=== PATIENT | male | born 1955 | race Caucasian/White ===

== ENCOUNTER 2021-10-27 06:55 | Day surgery (SDC) | payer MEDICARE, OTHER ==
[~2021-10-27] VITALS: Ht 205.7 cm; Wt 109.1 kg
[~2021-10-27 06:55] MED LIST: ASPIRIN325 MG PO; ATENOLOL25 MG PO; CALTRATE 600 +1 EAC1 PO; CELLCEPT500 MG PO; FLOMAX0.4 MG PO; FOSAMAX70 MG PO; HYDROXYZINE HCL50 MG PO; IMURAN50 MG PO; MAGNESIUM400 M1 PO; MULTIVITAMINS1 EAC7 PO; PROGRAF1 MG PO; ROPINIROLE HC0.25 MG PO; TEMAZEPAM30 MG PO
--- NOTE | 2021-10-27 09:11 | NUR ---
10/27/21 0911 Cielo Desai 0953-PATIENT ARRIVED TO PACU ON 10L MASK ORAL AIRWAY IN PLACE. NONAROUSABLE. LAYING LEFT LATERAL ABDOMEN SOFT. PASSING GAS. IVF INFUSING.
--- NOTE | 2021-10-27 09:50 | OR ---
[facility] [address] [place], [place] [address] Signed DATE OF OPERATION: 10/27/2021 SURGEON: Alie Paula MD PREOPERATIVE DIAGNOSES: 1. Internal hemorrhoids. 2. Diverticulosis. 3. Personal history of colonic polyps. 4. Maternal aunt with colon cancer in her 60s. POSTOPERATIVE DIAGNOSES: 1. 4 mm polyp at 18 cm/rectum. 2. Moderate sigmoid diverticulosis. 3. Minimal to moderate internal hemorrhoids. PROCEDURE: Colonoscopy with hot biopsy. ESTIMATED BLOOD LOSS: None. INDICATIONS: Ronnie is a 66-year-old gentleman, who returns for a followup colonoscopy. He ended up with hepatitis C as well as his drinking. He had to have a liver transplant back in 2010 at our [facility]. He continues to do well. Dr. Larson did his colonoscopy in 2004 and apparently he had polyps. He had upper and lower endoscopy again with Dr. Larson in 2008. No polyps at that time, but he had internal hemorrhoids and diverticulosis. He was said to have esophageal varices at that time. He had banding of the esophageal varices with Dr. Larson in 2009. His followup colonoscopy in 2010 revealed tiny 2 mm polyp in the rectum and again internal hemorrhoids and diverticulosis. He had banding of the varices at that time prior to his liver transplant. I helped him with a colonoscopy in 2015. He had a tubular adenoma and a tubulovillous adenomatous polyp removed. He also had internal hemorrhoids and diverticulosis. He has been in atrial fibrillation since that time as well. He requires monitored anesthesia care given his past medical history. We had also felt a left prostate nodule and he follows along with his urologist, Dr. Meyers. We know his maternal aunt was diagnosed with colon cancer in her 60s. Currently, he has no lower GI complaints. In the office, I had given him a pamphlet on colonoscopy. He recalls the nature of the test. There is risk including, but not limited to gas bloating, crampy abdominal pain, bleeding, perforation requiring surgery, and missed diagnosis. We also Electronically Signed By: ALIE PAULA MD 10/27/21 0950 PATIENT NAME: RONNIE VICKERS OPERATIVE REPORT DATE OF : 53 REPORT #: [id number] PHYSICIAN: ALIE PAULA MD PCP: NAOMI NICK MD REPORT IS CONFIDENTIAL AND NOT TO BE RELEASED WITHOUT AUTHORIZATION [facility] [address] [place], [place] [address] Signed reviewed the need for monitored anesthesia care. He had expressed understanding and wished to proceed. PROCEDURE NOTE: Ronnie was taken into our endoscopy suite and placed in the left lateral decubitus position. He was given monitored anesthesia care with propofol per our nurse him manager. A digital rectal exam was performed and again he has a fairly significant prostate that is indurated left little more than the right. Really not much in the way of any external hemorrhoids. He had good sphincter tone. The adult colonoscope had been introduced and advanced around into the cecum under direct visualization of the camera without difficulty. He needed extra propofol in that regard. His prep was quite excellent. We could easily see the appendiceal orifice and the ileocecal valve. The scope was then slowly withdrawn. He does have diverticula in the sigmoid colon. They are moderate in size, minimal to moderate in number, and scattered about. We could see just a tiny polyp at the top of his rectum, easily removed with a hot biopsy forceps. Upon retroflexion of the scope, he does have moderate internal hemorrhoid columns. After this, the gas was suctioned out and colonoscope removed. Ronnie tolerated the procedure quite well. RECOMMENDATIONS: I will see Ronnie back in my office in 7 to 14 days to review his results. I suspect he will stay on the five year plan. Alie Paula MD ALB/MODL /[id number] cc: MD Naomi Don MD Copies: ALIE PAULA MD Electronically Signed By: ALIE PAULA MD 10/27/21 0950 PATIENT NAME: RONNIE VICKERS OPERATIVE REPORT DATE OF : 53 REPORT #: [id number] PHYSICIAN: ALIE PAULA MD PCP: NAOMI NICK MD REPORT IS CONFIDENTIAL AND NOT TO BE RELEASED WITHOUT AUTHORIZATION [facility] [address] [place] [address] Signed NAOMI NICK MD ~ Electronically Signed By: ALIE PAULA MD 10/27/21 0950 PATIENT NAME: RONNIE VICKERS OPERATIVE REPORT DATE OF : 53 REPORT #: [id number] PHYSICIAN: ALIE PAULA MD PCP: NAOMI NICK MD REPORT IS CONFIDENTIAL AND NOT TO BE RELEASED WITHOUT AUTHORIZATION
--- NOTE | 2021-10-28 16:24 | PATH ---
[facility] [address] [place], [place] [address] Signed SPECIMEN(S): A RECTAL POLYP AT 18 CM SPECIMEN SOURCE: A. RECTAL POLYP AT 18 CM CLINICAL HISTORY: Personal history of colon polyps, family history of colon cancer, internal hemorrhoids, diverticulosis. FINAL PATHOLOGIC DIAGNOSIS: Rectum, polyp at 18 cm, polypectomy: - Hyperplastic polyp. - Negative for dysplasia or malignancy. NAL:cml:C2NR MICROSCOPIC EXAMINATION: Histologic sections of all submitted blocks are examined by light microscopy. These findings, together with the gross examination, support the pathologic diagnosis. GROSS DESCRIPTION: The specimen, labeled "FU," and designated on the requisition "rectal polyp at 18 cm," is received in formalin and consists of one hui soft tissue fragment that measures 0.3 cm in greatest dimension. The specimen is entirely submitted in cassette (A1). AT (under the direct supervision of a pathologist) The Gross Description was prepared using a voice recognition system. The report was reviewed for accuracy; however, sound-alike word errors, addition and/or deletions may occur. If there is any question about this report, please contact Client Services. PERFORMING LABORATORY: The technical component was performed by [facility], [address] [place] [id number] (CLIA# [id number]). [facility], [address] [address] (CLIA# [id number]). Diagnostician: Nessa Chakraborty MD Pathologist Electronically Signed 10/28/2021 PATIENT NAME: ADRIAN VICKERS PATHOLOGY DATE OF : 53 REPORT #: [id number] PHYSICIAN: [facility] PCP: NAOMI NICK MD REPORT IS CONFIDENTIAL AND NOT TO BE RELEASED WITHOUT AUTHORIZATION [address] [place] [address] Signed Copies: ~ PATIENT NAME: ADRIAN VICKERS PATHOLOGY DATE OF : 53 REPORT #: [id number] PHYSICIAN: [facility] PCP: NAOMI NICK MD REPORT IS CONFIDENTIAL AND NOT TO BE RELEASED WITHOUT AUTHORIZATION
== END 2021-10-27 09:50 | disposition home or self-care (01) ==
LOC: DS 06:55 → OPS 06:55 → DS 08:15 → OPS 08:15
PROVIDERS: ATTEND Colon & Rectal Surgery
PROC: 0DBP8ZZ Excision of Rectum, Via Natural or Artificial Opening Endoscopic (ICD-10-PCS; principal; 2021-10-27 08:15)
DX: K62.1 Rectal polyp (principal); K64.8 Other hemorrhoids; K57.30 Diverticulosis of large intestine without perforation or abscess without bleeding; N40.0 Benign prostatic hyperplasia without lower urinary tract symptoms; I48.20 Chronic atrial fibrillation, unspecified; I10 Essential (primary) hypertension; M81.0 Age-related osteoporosis without current pathological fracture; G25.81 Restless legs syndrome; Z86.010 Personal history of colon polyps; Z80.0 Family history of malignant neoplasm of digestive organs; Z94.4 Liver transplant status; Z79.82 Long term (current) use of aspirin
CPT/HCPCS: J2704

== ENCOUNTER 2023-01-09 17:56 | Emergency (ER) | payer MEDICARE, OTHER ==
[~2023-01-09] VITALS: Ht 205.7 cm; Wt 106.6 kg
[2023-01-09] MEDS ORDERED: ATORVASTATIN CA10 MG PO (22:11)
[2023-01-10 01:00] VITALS: BP 115/63
== END 2023-01-10 01:27 | disposition home or self-care (01) ==
LOC: ED 17:56
DX: T83.091A Other mechanical complication of indwelling urethral catheter, initial encounter (principal); Y73.3 Surgical instruments, materials and gastroenterology and urology devices (including sutures) associated with adverse incidents; Y83.3 Surgical operation with formation of external stoma as the cause of abnormal reaction of the patient, or of later complication, without mention of misadventure at the time of the procedure; Z87.891 Personal history of nicotine dependence; Z79.899 Other long term (current) drug therapy; Z79.82 Long term (current) use of aspirin
CPT/HCPCS: 51702; 51798; 99283-25